=== PATIENT | male | born 2005 | race Caucasian/White ===

== ENCOUNTER 2024-11-18 13:00 | Emergency (ER) | payer BC, SELFPAY ==
[2024-11-18 13:07] VITALS: BP 118/63; PULSE 91; TEMP 36.7; O2SAT 99; BMI 34.7
[2024-11-18 13:41] LABS: Basophils % 0.5 %; Eosinophils # 0.1 10^3/uL (0.0-0.8); Hematocrit 48.5 % (37-53); Lymphocytes # 1.6 10^3/uL (0.8-4.8); Lymphocytes % 21.5 %; Mean Corpuscular Volume 82.2 fl (82-101); Mean Platelet Volume 11.9 fL (7.4-10.4); Monocytes # 0.4 10^3/uL (0.2-0.9); Neutrophils # 5.19 10^3/uL (1.8-7.7); Neutrophils % 70.7 %; Nucleated Red Blood Cells % 0 %; Platelet Count 288 10^3/cmm (157-399); Red Cell Distribution Width 11.8 % (12.1-15.1); White Blood Count 7.34 10^3/uL (3.29-11.43)
[2024-11-18 13:56] LABS: Alanine Aminotransferase 32 U/L (0-41); Albumin Level 4.7 g/dL (3.5-5.2); Alkaline Phosphatase 112 U/L (40-130); Anion Gap 17.7 (5-19); Aspartate Amino Transferase 21 U/L (0-40); Blood Urea Nitrogen 13 mg/dL (6-20); Calcium 9.9 mg/dL (8.5-10.5); Carbon Dioxide 24 mmol/L (22-29); Chloride 105 mmol/L (98-107); Creatinine Clr Calc Pharmacy 159.6765; Globulin 3.3 g/dL (1.3-4.6); Glucose 79 mg/dL (65-115); Lipase 36 U/L (13-60); Osmolality Calculated 293 mOsm/kg (285-295); Potassium 4.7 mmol/L (3.5-5.1); Sodium 142 mmol/L (136-145); Total Bilirubin 0.4 mg/dL (0.15-1.2)
--- NOTE | 2024-11-18 13:59 | ED_ITS ---
HPI - Abdominal Pain 2 General: Chief Complaint: Abdominal Pain Stated Complaint: lower abd pain, n/v Time Seen by Provider: 11/18/24 13:18 History of Present Illness: 19-year-old male presents emergency room complaint of right lower quadrant pain that began about 5 to 6 hours earlier. He has not been constipated has not had any diarrhea last bowel movement was yesterday no dysuria urgency or frequency no penile discharge. No previous abdominal surgeries localizes pain to the right lower quadrant nauseous but no episodes of vomiting. Associated Symptoms: Reports vomiting; Denies chills, diarrhea, dysuria, fever(s) and nausea Related Data Previous Rx's ?Medication ?Instructions ?Recorded promethazine 25 mg tablet 25 mg PO Q6H PRN nausea and 11/18/24 vomiting #20 tabs Allergies Allergy/AdvReac Type Severity Reaction Status Date / Time No Known Allergies Allergy Verified 11/18/24 13:10 Review of Systems 2 Const: Denies: fever(s) or chills Card: Denies: chest pain Resp: Denies: dyspnea GI: Reports: abdominal pain and vomiting; Denies: nausea or diarrhea : Denies: dysuria, urinary frequency or urinary urgency Musc: Denies: neck pain or back pain Skin/Breast: Denies: rash PFSH ED 2 PFSH: Social History Smoking and tobacco/nicotine status: never used tobacco/nicotine Physical Exam 2 Const: GENERAL APPEARANCE: cooperative ORIENTATION/CONSCIOUSNESS: Yes awake, Yes oriented to person, Yes oriented to place and Yes oriented to time HENMT: COMMON NORMALS: normocephalic, atraumatic and hearing grossly normal bilaterally HEAD & SCALP: normocephalic and atraumatic Resp: COMMON NORMALS: normal respiratory effort, No retractions, No use of accessory muscles and clear to auscultation bilaterally AUSCULTATION: clear to auscultation bilaterally Cardio: COMMON NORMALS: regular rate, regular rhythm and No murmurs present (Cardio) RATE: regular rate RHYTHM: regular rhythm GI: COMMON NORMALS: No hepatosplenomegaly present AUSCULTATION: Yes normoactive bowel sounds PALPATION: Yes Tenderness to palpation present (GI) Details: RLQ, No Guarding due to palpation present (GI) and Yes No hepatosplenomegaly present Extremity: COMMON NORMALS: normal to inspection, capillary refill normal, no clubbing, cyanosis or edema, no calf tenderness and no pedal edema Neuro: SENSORIUM/ORIENTATION: Yes oriented to person, Yes oriented to place and Yes oriented to time Skin: COMMON NORMALS: no rashes or lesions noted GENERAL SKIN EXAM: no rashes or lesions noted Course 2 Vital Signs: Vital signs: Vital Signs Temperature 98.1 F 11/18/24 13:07 Pulse Rate 76 11/18/24 16:27 Respiratory Rate 18 11/18/24 16:27 Blood Pressure 104/60 11/18/24 16:27 Pulse Oximetry 97 11/18/24 16:27 Oxygen Delivery Me thod Room Air 11/18/24 13:07 MDM - Abdominal Pain Medical Decision Making Patient has a lower abdominal changes had any vomiting here no leukocytosis CT of the abdomen is unremarkable. Discharge patient on clear liquid diet promethazine as needed follow-up with primary care as needed return for further problems. Discussed that he does have a small right inguinal hernia with a little bit of fat in the hernia is unlikely to be the cause of this pain offered referral to surgery with the caveat that the majority times we do not pursue any surgical corrections of these is because they are not clinically significant he does not wish to do anything else with it. Medical Records I reviewed the patient's medical records. Lab Data I reviewed the patient's lab results. 11/18/24 13:31 11/18/24 13:31 Labs/Radiology: Radiology Impressions Abdomen/Pelvis CT 11/18/24 14:44 IMPRESSION: 1. Normal appendix. 2. No renal obstruction or calcifications. 3. Very tiny RIGHT inguinal fat-containing hernia. 4. No GI tract obstruction. Laboratory Results WBC 7.34 10^3/uL (3.29-11.43) 11/18/24 13:31 RBC 5.90 10^6/uL (3.85-5.65) H 11/18/24 13:31 Hgb 16.50 g/dL (11.27-16.99) 11/18/24 13:31 Hct 48.5 % (37-53) 11/18/24 13:31 MCV 82.2 fl (82-101) 11/18/24 13:31 MCH 28.0 pg (27-33) 11/18/24 13:31 MCHC 34.0 g/dL (30-55) 11/18/24 13:31 RDW 11.8 % (12.1-15.1) L 11/18/24 13:31 Plt Count 288 10^3/cmm (157-399) 11/18/24 13:31 MPV 11.9 fL (7.4-10.4) H 11/18/24 13:31 Neut % (Auto) 70.7 % 11/18/24 13: Lymph % (Auto) 21.5 % 11/18/24 13:31 [place] % (Auto) 6.0 % 11/18/24 13: Eos % (Auto) 1.0 % 11/18/24 13: Baso % (Auto) 0.5 % 11/18/24 13: Neut # (Auto) 5.19 10^3/uL (1.8-7.7) 11/18/24 13: Lymph # (Auto) 1.6 10^3/uL (0.8-4.8) 11/18/24 13:31 [place] # (Auto) 0.4 10^3/uL (0.2-0.9) 11/18/24 13:31 Eos # (Auto) 0.1 10^3/uL (0.0-0.8) 11/18/24 13: Baso # (Auto) 0.0 10^3/uL (0.0-0.1) 11/18/24 13: Nucleated RBC % (auto) 0 % 11/18/24 13: Nucleated RBCs # 0.0 /100WBC 11/18/24 13:31 Sodium 142 mmol/L (136-145) 11/18/24 13:31 Potassium 4.7 mmol/L (3.5-5.1) 11/18/24 13:31 Chloride 105 mmol/L (98-107) 11/18/24 13:31 Carbon Dioxide 24 mmol/L (22-29) 11/18/24 13:31 Anion Gap 17.7 (5-19) 11/18/24 13:31 BUN 13 mg/dL (6-20) 11/18/24 13:31 Creatinine 0.8 mg/dL (0.7-1.2) 11/18/24 13:31 GFR Calculation 122.0 mL/min (90-130) 11/18/24 13:31 Glucose 79 mg/dL (65-115) 11/18/24 13:31 Calculated Osmolality 293 mOsm/kg (285-295) 11/18/24 13:31 Calcium 9.9 mg/dL (8.5-10.5) 11/18/24 13:31 Total Bilirubin 0.4 mg/dL (0.15-1.2) 11/18/24 13:31 AST 21 U/L (0-40) 11/18/24 13:31 ALT 32 U/L (0-41) 11/18/24 13:31 Alkaline Phosphatase 112 U/L (40-130) 11/18/24 13:31 Total Protein 8.0 g/dL (6.6-8.7) 11/18/24 13:31 Albumin 4.7 g/dL (3.5-5.2) 11/18/24 13:31 Globulin 3.3 g/dL (1.3-4.6) 11/18/24 13:31 Lipase 36 U/L (13-60) 11/18/24 13:31 Urine Color Yellow (Yellow) 11/18/24 13:56 Urine Appearance Clear (CLEAR) 11/18/24 13:56 Urine pH 5.5 (5-7) 11/18/24 13:56 Ur Specific [place] 1.025 (1.005-1.030) 11/18/24 13:56 Urine Protein Negative (Negative) 11/18/24 13:56 Urine Glucose (UA) Negative (Normal) 11/18/24 13:56 Urine Ketones Negative (Negative) 11/18/24 13:56 Urine Blood Negative (Negative) 11/18/24 13:56 Urine Nitrate Negative (Negative) 11/18/24 13:56 Urine Bilirubin Negative (Negative) 11/18/24 13:56 Urine Urobilinogen 1.0 mg/dL (Negative) 11/18/24 13:56 Ur Leukocyte Esterase Negative (Negative) 11/18/24 13:56 Urine RBC 0-2 /hpf (0-2) 11/18/24 13:56 Urine WBC 0-5 /hpf (0-5) 11/18/24 13:56 Ur Squamous Epith Cells 0-5 /hpf (0-5) 11/18/24 13:56 Amorphous Sediment Not Reportable 11/18/24 13:56 Urine Bacteria None seen /hpf (NONE) 11/18/24 13:56 Hyaline Casts 1.21 /lpf 11/18/24 13:56 All radiology interpretation(s) finalized by discharge Discharge Plan Discharge Patient Disposition: Home Clinical Impression: Abdominal pain Condition: Stable Prescriptions: New promethazine 25 mg tablet 25 mg PO Q6H PRN (Reason: nausea and vomiting) Qty: 20 0RF Discharge Orders: Discharge ED (Routine); Ordered 11/18/24 Ordered By: Bashir Corral Discharge Diet: Clear Liquid Discharge Activity: Resume usual activity Patient Instructions: Abdominal Pain (ED), Opioid Safety, Pain Management Activity Restrictions/Additional Instructions: Thank you for choosing [facility] for your healthcare needs today. It is very important that you follow up as instructed or that you return to the Emergency Department should you have concerns or if your condition changes or worsens in any way. You were seen in the emergency room with complaint of abdominal pain your white count was normal your chemistry labs were all normal your urine was also normal CT of the abdomen showed a very small Inguinal hernia with fat this is not likely to be the source of your pain. There is no evidence of ongoing gallbladder disease or acute appendicitis. There is no bowel in the hernia defect so this is not emergent. Recommend discharge home and follow a clear liquid diet for the next 24 to 48 hours and advance as tolerated worsening or change symptoms return. Print Language: Upper Sorbian Coding Level of Care Code ED Case Hardener for Esteban Bui
[2024-11-18 14:19] LABS: Bilirubin Urine Negative (Negative); Blood Urine Negative (Negative); Glucose Urine UA Negative (Normal); Ketones Urine Negative (Negative); Leukocyte Esterase Urine Negative (Negative); Nitrate Urine Negative (Negative); Protein Urine Negative (Negative); Specific Gravity, Urine 1.025 (1.005-1.030); Urine Appearance Clear (CLEAR); Urine Color Yellow (Yellow); pH Urine 5.5 (5-7)
[2024-11-18 14:21] LABS: Add Urine Microscopic? YES; Bacteria Urine None Seen /hpf; Hyaline Casts Urine 1.21 /lpf; RBC Urine 0-2 /hpf (0-2); Squamous Epithelial Cell Urine 0-5 /hpf (0-5); WBC Urine 0-5 /hpf (0-5)
--- NOTE | 2024-11-18 14:44 | CT_ITS ---
WS: [id number] CT ABDOMEN AND PELVIS WITH CONTRAST HISTORY: abd pain, RIGHT lower quadrant pain for 2 days. TECHNIQUE: Imaging performed of the abdomen and pelvis with IV contrast. Single phase imaging of the abdomen. Coronal and sagittal reformats are submitted. All CT scans at [facility] use at least one of these dose optimization techniques: automated exposure control; mA and/or kV adjustment per patient size (includes targeted exams where dose is matched to clinical indication); or iterative reconstruction. IV CONTRAST: Omnipaque 350; 100 mL IV. Oral contrast: No DLP: 798.47 mGy.cm COMPARISON: None available. Lower thorax: Lung bases are clear. Heart is normal size. No hiatal hernia. Liver/biliary system: Normal size liver. Very slight focal fatty sparing along the falciform ligament. Normal portal vein. Gallbladder: Normal. No gallstones or wall thickening. No pericholecystic fluid. Pancreas: Normal size pancreas and pancreatic duct. No adjacent inflammation. Spleen: Normal size spleen. No mass or infarct. Adrenal glands: Normal. Right kidney: Normal. Left kidney: Normal. Aorta: Normal. Lymphadenopathy: None. Free fluid: None. GI tract: Unremarkable. Abdominal wall: Unremarkable abdominal wall. No hernia. Pelvis: No free fluid or adenopathy within the pelvis. Very tiny fat-containing RIGHT inguinal hernia. Bones: Unremarkable. CT/CT abdomen pelvis w con* [id number] IMPRESSION: 1. Normal appendix. 2. No renal obstruction or calcifications. 3. Very tiny RIGHT inguinal fat-containing hernia. 4. No GI tract obstruction.
[2024-11-18] MEDS: iohexol 350 mg/mL 500 mL Btl (per mL) IV (14:57)
[2024-11-18 15:10] VITALS: BP 110/64; PULSE 78; O2SAT 96
[2024-11-18 16:27] VITALS: BP 104/60; PULSE 76; RESP 18; O2SAT 97
== END 2024-11-18 16:28 | disposition home or self-care (01) ==
PROVIDERS: Physician Assistant; Emergency Provider Family Medicine
DX: R10.9 Unspecified abdominal pain (principal)
CPT/HCPCS: 74177; 80053; 81001; 83690; 85025; 99285